=== PATIENT | female | born 2000 | race African-American/Black ===

== ENCOUNTER 2020-05-18 18:04 | Emergency (ER) | payer OTHER ==
[~2020-05-18] VITALS: Ht 165.1 cm; Wt 61.2 kg
[~2020-05-18 18:04] MED LIST: KEFLEX250 MG PO; NOHOMEMEDICATIONS
[2020-05-18 21:11] LABS: ABSOLUTE NEUTROPHILS 2.9 thou/uL (1.4-8.2); BASOPHILS 0.9 % (0.0-2.0); EOSINOPHILS 6.2 % (0.0-3.0); HEMATOCRIT 35.8 % (37.0-47.0); HEMOGLOBIN 12.1 gm/dL (12.0-15.0); LYMPHOCYTES 30.1 % (24.0-44.0); MCH 28.7 pg (26.0-34.0); MCHC 33.8 g/dL (28.0-37.0); MCV 85.1 fL (80.0-100.0); MONOCYTES 8.1 % (1.0-8.0); PLATELET COUNT 381 thou/uL (150-400); POLYS 54.7 % (36.0-66.0); RDW 16.9 % (10.5-14.5); WBC 5.3 thou/uL (4.0-11.0)
[2020-05-18 21:27] LABS: CALCIUM 9.6 mg/dL (8.5-10.1); CREATININE 0.8 mg/dL (0.6-1.0); POTASSIUM 3.9 mmol/L (3.5-5.1)
[2020-05-18 21:32] LABS: TOTAL BILIRUBIN 0.2 mg/dL (0.2-1.0); TOTAL PROTEIN 7.4 g/dL (6.4-8.2)
[2020-05-18 22:18] VITALS: BP 109/52
--- NOTE | 2020-05-19 16:26 | EKG ---
[address] [address] ELECTROCARDIOGRAM REPORT Name: SAUL EUGENE [id number] Admission: 05/18/20 Attend Phys: Discharge: 05/18/20 Date of : 00 Report #: [id number] [facility] ED Test Date: 2020-05-18 Test Time: 19:23:06 Pat Name: SAUL EUGENE Department: Room: Gender: F Reading Professor: ILYA : 2000 Requested By: Theo Elena Order Number: [id number] MD: Hayder Chao Measurements Intervals [place] Rate: 97 P: 77 RI: 131 QRS: 80 QRSD: 95 T: 23 QT: 356 QTc: 452 Interpretive Statements Sinus rhythm Probable left atrial enlargement No previous ECG available for comparison Electronically Signed On 05-19-2020 16:25:59 [employer] by Hayder Chao [email or web address] <ELECTRONICALLY SIGNED> By: Hayder Chao MD, [facility] 05/19/20 1625 1923 192 Hayder Chao MD, FACC /EPI
== END 2020-05-18 22:22 | disposition home or self-care (01) ==
LOC: ER 18:04
PROVIDERS: Emergency Medicine
DX: R00.2 Palpitations (principal)